=== PATIENT | female | born 1960 | race Caucasian/White ===

== ENCOUNTER 2025-05-14 13:58 | Outpatient (AMB) | payer MEDICARE, SELFPAY ==
--- NOTE | 2025-05-14 14:29 | A.PHYSOV ---
Vital Signs 05/14/25 14:37 Height 5 ft 2 in Weight 166 lb BMI 30.4 Intake Visit Reasons: NPV SMA REF- Lumbar radiculopathy Intake Note: Patient is a 65 year old female here today for a new patient visit. Patient has been referred for lumbar radiculopathy. Food Preparer Required: No Allergies amoxicillin (From Augmentin) Allergy (Unknown, Verified 05/14/25 14:32) Unknown clavulanic acid (From Augmentin) Allergy (Unknown, Verified 05/14/25 14:32) Unknown HPI Comments Details: History of Present Illness The patient is a 65-year-old female presenting with chronic discomfort and functional limitations primarily due to hip and knee pain. The patient has a history of lumbar spondylosis, with an MRI from August 2024 showing multiple levels of spondylosis and nerve root crowding. She experiences chronic back discomfort, especially when standing or walking for long periods, but denies current sciatica symptoms. The patient reports significant hip discomfort, identified as likely hip arthritis, with tightness and limited range of motion contributing to her limping and knee pain. She also experiences persistent right knee pain, exacerbated by movement and weight-bearing activities, and plans to obtain an x-ray for further evaluation. Previous interventions include physical therapy and career development coordinator/teacher, which were discontinued due to cost and lack of benefit, and a digital physical therapy program that may have worsened her knee discomfort. She has a pain level today at 7/10. I reviewed the referring provider's no prior to consultation. Pain Description - Onset: Chronic, with significant symptoms noted since 2019 - Quality: Described as discomfort rather than acute pain - Location: Primarily in the right knee and hip - Radiation: No radiating pain down the legs - Exacerbating factors: Movement, weight-bearing activities - Relieving factors: Ice application in the morning - Interference: Affects walking, standing, and carrying objects Results - MRI Lumbar Spine (August 2024): Multiple levels of lumbar spondylosis, crowding of bilateral L5 nerve roots at L4-5, disc abutment of right L2 nerve root at L1-2 [facility] Surgical History Hx of tonsillectomy (~1962) Social History (Updated 05/14/25 @ 14:36 by Gillian Peck MA) Alcohol intake: current Alcohol intake frequency: a few times a month Patient Tobacco Use Status: Never used Tobacco Current occupational status: retired Review of Systems Narrative Review of Systems - Musculoskeletal: Reports chronic discomfort in the right knee and hip; denies radiating pain down the legs - Neurological: Denies current sciatica symptoms - Gastrointestinal: Reports discomfort associated with irregular bowel movements Physical Exam Exam Exam: Physical Exam Lumbar Spine: Examination of her lumbar spine, there is no visible swelling or deformity. She is tender to lower lumbar facets. She is otherwise nontender. Full range of motion of lumbar spine. She does have an increase in pain with facet loading. Special Tests: Lhermittes sign was negative Heel Toe walk is normal Left straight leg raise: Negative Right straight leg raise: Negative Special tests Tiffany test is negative Ganslen's test is negative SI Joint compression test negative Dhara test negative Piriformis stretch is negative Lower Extremities: Marked limited range of motion of her right hip and external rotation as well as internal rotation. She is tender to the medial joint line of the right knee. There is no effusion. Ligaments are intact. Full range of motion. She does have pain with Bel testing medially. Range of motion exacerbates her pain. Otherwise full range of motion bilateral lower extremities. No calf pain or edema. Neuro: Sensation: Intact to lower extremities bilaterally Strength L2 (Psoas): 5/5 on the left and 5/5 on the right. L3 (Quads): 5/5 on the left and 5/5 on the right. L4 (Ant tibialis): 5/5 on the left and 5/5 on the right. L5 (EHL) 5/5 on the left and 5/5 on the right. S1 (Gastroc): 5/5 on the left and 5/5 on the right. DTR L4: (Patellar) Left 2 Right 2 S1: (Achilles) Left 2 Right 2 Babinski Downgoing No pathologic clonus. No involuntary movement. Vital Signs: BMI result Body Mass Index 30.4 Office Procedures AMB Knee Injection AMB Knee Injection Procedure Details: Right Knee injection: The risks, benefits and complications of the right knee injection were discussed with the patient including but not limited to increased serum glucose, infection, nerve pain, fat atrophy, pigment augmentation, bleeding and pain. All questions were answered to the patient's satisfaction. Verbal consent was obtained. The patient was eager to proceed. Using aseptic technique with Betadine, ethyl chloride was then used to desensitize the skin. Using a 22-gauge needle 40 mg of Kenalog and 3 mL 2% lidocaine were injected into the knee joint. A Band-Aid was applied. Patient tolerated the procedure well without immediate complication. Postinjection instructions were given. Knee Injection - : Right All charges added?: Procedure code (CPT) selection complete Office Meds Kenalog 40 mg/mL suspension for injection Performing Provider: AUGUSTO Castro [facility] Administered by: AUGUSTO Castro on 05/14/25 16:05 Dose Route Admin Location Dispensed Lot Number Expiration Date [facility] Team Lead 40 mg intra-articular 1 mL [id number] [employer] Total Dispensed Waste 1 mL 0 % lidocaine (PF) 20 mg/mL (2 %) injection solution Performing Provider: AUGUSTO Castro Performing Location: [facility] Administered by: AUGUSTO Castro on 05/14/25 16:05 Dose Route Admin Location Dispensed Lot Number Expiration Date [facility] Team Lead 60 mg intra-articular 3 mL [id number] Total Dispensed Waste 3 mL 0 % Assessment & Plan Assessment & Plan (1) Osteoarthritis of right hip: Code(s): M16.11 - Unilateral primary osteoarthritis, right hip Category: Medical Qualifiers: Osteoarthritis type: primary Qualified Code(s): M16.11 - Unilateral primary osteoarthritis, right hip (2) Osteoarthritis of right knee: Code(s): M17.11 - Unilateral primary osteoarthritis, right knee Category: Medical Qualifiers: Osteoarthritis type: primary Qualified Code(s): M17.11 - Unilateral primary osteoarthritis, right knee Plan Pain Management - Affect: Pain impacts functionality and quality of life - Analgesia: No specific pain medications discussed - Adverse Effects: None reported - Activities of Daily Living: Pain limits walking, standing, and carrying objects - Aberrant Drug Related Behaviors: None reported Plan Patient was informed and verbally consented to the use of an ambient scribe for clinic note documentation during this visit. 1. Lumbar Spondylosis The plan for lumbar spondylosis includes monitoring symptoms and considering further imaging if symptoms worsen. 2. Hip Arthritis The plan for hip arthritis involves obtaining an x-ray of the hip and ordering an injection for pain management. 3. Knee Pain The plan for knee pain includes obtaining an x-ray and administering a cortisone injection to assess its efficacy in pain relief. Discussion Notes During the discussion, I explained to the patient that her hip appears to be the primary source of her discomfort, potentially causing her knee pain as well. We discussed the option of obtaining x-rays for both the hip and knee to better understand the underlying issues. I offered a cortisone injection for her knee to provide temporary relief, explaining the potential risks and benefits, including the possibility of infection and nerve damage. We also discussed the plan to order a hip injection, which would be administered by Dr. Daniel, and the importance of follow-up to assess the effectiveness of these interventions. Patient Instructions - Schedule x-rays for your right hip and knee as soon as possible. - Consider receiving a cortisone injection for your knee today to help with pain relief. - Follow up with Dr. Daniel for a hip injection. - Monitor your symptoms and report any changes or worsening of your condition. Orders: Orders XR hip RT min 2V Today M16.10 - Unilateral primary osteoarthritis, unspecified hip XR knee RT 4V Today M25.569 - Pain in unspecified knee AMB Knee Injection Today M17.11 - Unilateral primary osteoarthritis, right knee Coding Level of Care Code Tele New Pt Level 4 (83614) Diagnoses Primary osteoarthritis of right hip M16.11 Osteoarthritis type: primary Primary osteoarthritis of right knee M17.11 Osteoarthritis type: primary CPT Codes AMB Knee Injection - Hip/Bursa Injection - : Right ([id number])
[2025-05-14 14:37] VITALS: BMI 30.4
--- OUTSIDE RECORDS SUMMARY | 2025-05-14 17:22 | XMS_ITS | Clinical Summary ---
Author Organization [facility] ity Address [address] [place] [address] Care Team Providers Care Rail Car Loader Name Role Phone Rupal Ball MD Primary Care Provider Allergies Active Allergy Reactions Criticality Noted Date Comments Amoxicillin-Pot Clavulanate Diarrhea,Pranav sea And Vomiting 07/15/2013 Medications clotrimazole-be tamethasone (LOTRISONE) 1-0.05 % cream APPLY SPARINGLY TO THE AFFECTED AREA(S) TWICE DAILY NEEDED 8 Active lisinopriL (PRINIVIL,ZESTR IL) 5 mg tablet TAKE 1 TABLET DAILY 2 Active simvastatin (ZOCOR) 10 mg tablet TAKE 1 TABLET DAILY (CALL TO SCHEDULE AN APPOINTMENT PRIOR TO FURTHER REFILLS) 2 Active Active Problems Problem Noted Date Diagnosed Date Glaucoma suspect 04/04/2021 Overview (08/01/2024): Dr Howard Herniation of intervertebral disc between L5 and S1 05/26/2020 Overview (08/01/2024): Rt paracentral disc, effaing S1 nerve root- Dr Rizzo- cauda equina Sciatica of right side 05/24/2020 Hypertension 02/05/2018 Hamstring injury 10/24/2017 Hyperlipidemia 01/30/2017 Rosacea 01/07/2013 Obesity 12/31/2012 Osteoarthrosis 12/29/2011 Immunizations Immunization Administration Dates Next Due Influenza trivalent, with pr eservative (Fluzone; Afluria) 6mo and older 03/11/2021,03/09/2020 Tdap Tetanus diptheria acell ular pertussis (Boostrix; Adacel) 7yo and older 04/17/2012 Zoster recombinant (Shingrix) 19yo and older 12/2020,12/02/2020 Surgical History Surgery Date Site/Laterality Comments EYE SURGERY PROCEDURE: HISTORICAL EYE SURGERY TONSILLECTOMY PROCEDURE: HISTORICAL TONSILLECTOMY Medical History Medical History Date Comments Hyperlipidemia 01/30/2017 DX:Hyperlipidemi a Hamstring injury 10/24/2017 DX:Hamstring in jury Hypertension 02/05/2018 DX:Hypertension Osteoarthrosis 12/29/2011 DX:Osteoarthrosi s Rosacea 01/07/2013 DX:Rosacea Obesity 12/31/2012 DX:Obesity Family History Medical History Relation Name Comments Pancreatic cancer Father CHF, HTN Prostate cancer Maternal Grandfather Coronary artery disease Mother Coronary artery disease Paternal Grandfather Other: complication of child brith Paternal Grandmothe r Relation Name Status Comments Father Maternal Grandfather Maternal Grandmother Mother Paternal Grandfather Paternal Grandmother Social History Tobacco Use Types Packs/Day Years Used Date Smoking Tobacco: Never Smokeless Tobacco: Never Alcohol Use Standard Drinks/Week Comments Yes 0 (1 standard drink = 0.6 oz pur e alcohol) Comments Unknown Sex and Gender Information Value Date Recorded Sex Assigned at Not on file Legal Sex Female 7:57 AM EST Gender Identity Not on file Sexual Orientation Not on file Obstetrics History Plan of Treatment Health Maintenance Due Date Last Done Comments Colorectal Cancer Screening: Colonoscopy 1960 Pneumococcal Vaccine: 50+ Years (1 of 1 - PCV) 2008 Cervical Cancer Screening: HPV 08/01/2021 08/01/2016 DTaP,Tdap,and Td Vaccines (2 - Td or Tdap) 04/17/2022 04/17/2012 Osteoporosis Screening (Bone Density Screening) 06/04/2022 Social Influencers of Health Screening 06/04/2022 Hypertension/CHF/CAD Annual BMP Blood Test 06/16/2022 04/04/2021 Breast Cancer Screening 01/17/2023 01/17/2021 Falls Risk Assessment 2023 Depression Screening 07/02/2024 COVID-19 Vaccine (2 - 2024-2 6 season) 2025 10/04/2020 Influenza Vaccine (#1) 2025 , 03/09/2020 Cholesterol Screening (Lipid Panel) 11/18/2025 11/18/2020, 11/18/2020 RSV Immunization Adult Patients (1 - 1-dose 75+ series) 2033 Hepatitis C Screening Completed 11/18/2020 Zoster Vaccines Completed 02/05/2021, 12/02/2020 HIB Vaccines Aged Out No longer eligi ble based on patient's age to complete this topic HPV Vaccines Aged Out No longer eligi ble based on patient's age to complete this topic Hepatitis A Vaccines Aged Out No long er eligible based on patient's age to complete this topic Hepatitis B Vaccines Aged Out No long er eligible based on patient's age to complete this topic IPV Vaccines Aged Out No longer eligi ble based on patient's age to complete this topic MMR Vaccines Aged Out No longer eligi ble based on patient's age to complete this topic Meningococcal ACWY Vaccine Aged Out N o longer eligible based on patient's age to complete this topic Meningococcal B Vaccine Aged Out No l onger eligible based on patient's age to complete this topic RSV Immunization Patients Under 20 months Aged Out No longer eligible b ased on patient's age to complete this topic Varicella Vaccines Aged Out No longer eligible based on patient's age to complete this topic Procedures Procedure Name Priority Date/Time Associated Diagnosis Comments ANNUAL BMP BLOOD TEST Routine 04/04/2021 SCREENING MAMMOGRAPHY BI 2-VIEW BREAST INC CAD Routine 01/17/2021 1:58 PM EDT Encounter for screening mammogram for malignant neoplasm of breast HEPATITIS C SCREENING Routine 11/18/2020 LIPID PANEL Routine 11/18/2020 HPV Routine 08/01/2016 from Last 3 Months or Most Recently Relevant to Health Maintenance Results * Annual BMP Blood Test (04/04/2021) Annual BMP Blood Test abstracted Historical Provider HEALTH MAINTENANCE Final Result * SCREENING MAMMOGRAPHY BI 2-VIEW BREAST INC CAD (01/17/2021 1:58 PM EDT) Anatomical Region Laterality Modality Radiographic Glory ging 12/01/2020 9:36 AM EDT Narrative 01/18/2021 10:10 AM EDT This is a summary report. The complete report is available in the patient's medical record. If you cannot access the medical record, please contact the sending organization for a detailed fax or copy. Full field digital screening mammography, reviewed with CAD and compared to previous. Both 2D and tomosynthesis techniques were used. The breasts are composed of fatty and fibroglandular tissue. No suspicious mass, architectural distortion or suspicious calcifications are identified. IMPRESSION: : No mammographic evidence of malignancy. BIRADS 1-Negative; N. 5 year breast cancer risk assessment 1.7 % Lifetime breast cancer risk assessment 7.7 % Breast cancer risk category Low (<15%) Procedure Note Amor Durán MD - 06/20/2022 This is a summary report. The complete report is available in thepatient's medical record. If you cannot access the medical record, pleasecontact the sending organization for a detailed fax or copy. Full field digital screening mammography, reviewed with CAD and comparedto previous. Both 2D and tomosynthesis techniques were used. The breastsare composed of fatty and fibroglandular tissue. No suspicious mass,architectural distortion or suspicious calcifications are identified. IMPRESSION: : No mammographic evidence of malignancy. BIRADS 1-Negative; N. 5 year breast cancer risk assessment 1.7 % Lifetime breast cancer risk assessment 7.7 % Breast cancer risk category Low (<15%) Jah Carmona MD IMG XR PROCEDURES Final Result * Hepatitis C Screening (11/18/2020) Pathologist [facility] Hepatitis C Screening abstracted Historical Provider HEALTH MAINTENANCE Final Result * Lipid panel (11/18/2020) LDL/HDL Ratio 2 0 - 4 Triglycerides 92 0 - 150 mg/dL Cholesterol 189 0 - 200 mg/dL LDL Cholesterol 84 0 - 100 mg/dL Blood Venous blood specimen / Unknown Historical Provider LAB BLOOD ORDERABLES Svetlana l Result * Cervical Cancer Screening: HPV (08/01/2016) Cervical Cancer Screening: HPV no interpretation , abstracted Historical Provider HEALTH MAINTENANCE Final Result from Last 3 Months or Most Recently Relevant to Health Maintenance Care Teams Rail Car Loader Relationship Specialty Start Date End Date Rupal Ball MD [address] [place] [id number] PCP - General Internal Medicine 09/09/21
--- OUTSIDE RECORDS SUMMARY | 2025-05-14 17:22 | XMS_ITS | Clinical Summary ---
Author Organization [facility] Address [address] [place] [address] Care Team Providers Care Printing Supplies Sales Representative Name Role Phone Jah Carmona Primary Care Provider Elisa vailable Social History Tobacco Use Types Packs/Day Years Used Date Smoking Tobacco: Never Assessed Sex and Gender Information Value Date Recorded Sex Assigned at Not on file Gender Identity Not on file Sexual Orientation Not on file Plan of Treatment Health Maintenance Due Date Last Done Comments Hepatitis C Screening 1960 COVID-19 Vaccine (#1) 1958 Depression Screening 1970 Preventative Health Evaluation 1976 Colon Cancer Screening (Colonoscopy) 2003 Breast Cancer Screening (Mammogram) 2008 Shingrix-Zoster Vaccine (1 of 2) 2008 DTap / Tdap / Td (2 - Td or Tdap) 04/17/2022 012 Fall Risk Assessment 2023 Osteoporosis Screening (DEXA Scan) 2023 Pneumococcal Vaccine (1 of 1 - PCV) 2023 Influenza Vaccine (#1) 2025 RSV Adult > 60+ Yrs or Pregn ant (1 - 1-dose 75+ series) 2033 Hepatitis B Vaccines Aged Out No long er eligible based on patient's age to complete this topic RSV Ped < 20 months Aged Out No longe r eligible based on patient's age to complete this topic Care Teams Printing Supplies Sales Representative Relationship Specialty Start Date End Date Jah Carmona PCP - General Internal Medicine 06/02/20
== END 2025-05-14 15:17 | disposition home or self-care (01) ==
LOC: HO.HPHYS 13:59
PROVIDERS: PCP Internal Medicine; Visit Provider Physician Assistant
DX: M16.11 Unilateral primary osteoarthritis, right hip (principal); M17.11 Unilateral primary osteoarthritis, right knee
CPT/HCPCS: 20610; 99204

== ENCOUNTER → 2025-05-14 13:58 | Outpatient (BNVA) | payer MEDICARE, SELFPAY | PROVIDERS: PCP Internal Medicine; Visit Provider Physician Assistant | DX: M17.11 Unilateral primary osteoarthritis, right knee (principal); M16.11 Unilateral primary osteoarthritis, right hip; M47.816 Spondylosis without myelopathy or radiculopathy, lumbar region | CPT/HCPCS: 20610; 99202; J2003; J3301 ==

== ENCOUNTER 2025-06-12 12:10 | Outpatient (REF) | payer MEDICARE, SELFPAY | END 2025-06-12 12:11 | disposition home or self-care (01) | LOC: HO.HPHYSR 12:10 | PROVIDERS: PCP Internal Medicine; Visit Provider Physical Medicine & Rehabilitation | DX: M16.11 Unilateral primary osteoarthritis, right hip (principal) | CPT/HCPCS: 20610; 77002; J2003; J3301; Q9967 ==

== ENCOUNTER 2025-06-12 12:10 | Outpatient (AMB) | payer MEDICARE, SELFPAY ==
--- NOTE | 2025-06-12 12:18 | A.PHYSOV ---
Vital Signs 06/12/25 12:22 Height 5 ft 2 in Weight 167 lb BMI 30.5 Pulse 99 Intake Visit Reasons: Right Hip Injection Intake Note: Patient is a 65 year old female in office today for a Right Hip injection Floor Inspector Required: No Allergies amoxicillin (From Augmentin) Allergy (Unknown, Verified 06/12/25 12:18) Unknown clavulanic acid (From Augmentin) Allergy (Unknown, Verified 06/12/25 12:18) Unknown PFS Surgical History (Updated 06/12/25 @ 12:20 by Janelle Correa [place]) History of eye surgery Hx of tonsillectomy (~1961) Social History (Updated 06/12/25 @ 12:21 by Janelle Correa [place]) Household Members: None Alcohol intake: current Alcohol intake frequency: does not drink Patient Tobacco Use Status: Never used Tobacco Use of substances other than those prescribed or required for medical reasons: No service: No Current occupational status: retired Physical Exam Vital Signs: Last Vital Signs Pulse 99 06/12/25 12:22 BMI result Body Mass Index 30.5 Office Procedures AMB Hip Injection AMB Hip Injection Procedure Details: Procedure performed: Right hip injection under fluoroscopic guidance Preop diagnosis: Hip DJD Postop diagnosis: The same Patient was brought into the procedure room and placed in the supine position in the procedure table. Right hip joint was visualized utilizing fluoroscopy. Skin over joint was prepped with Betadine solution and draped. 3.5 in 22 gauge spinal needle was introduced percutaneously and advanced into the joint. Needle placement was verified utilizing 3 cc of Omnipaque contrast solution. Total volume of 5 cc containing 40 mg of triamcinolone and 2% lidocaine was injected after negative aspiration for blood and without resistance. Radiation exposure was recorded and documented in the chart. Hip intraarticular Injection - - use with FL Gd order: Right All charges added?: Procedure code (CPT) selection complete Office Meds Kenalog 40 mg/mL suspension for injection Performing Provider: Shaji Guardado DO Performing Location: [facility] Administered by: Shaji Guardado DO on 06/12/25 13:03 Dose Route Admin Location Dispensed Lot Number Expiration Date [facility] Manager [employer] 40 mg intrabursal 1 mL [id number] [employer] Total Dispensed Waste 1 mL 0 % lidocaine (PF) 20 mg/mL (2 %) injection solution Performing Provider: Shaji Guardado DO Performing Location: [facility] Administered by: Shaji Guardado DO on 06/12/25 13:03 Dose Route Admin Location Dispensed Lot Number Expiration Date [facility] Manager [employer] 40 mg intrabursal 5 mL [id number] [employer] Total Dispensed Waste 5 mL 60 % Omnipaque 300 300 mg iodine/mL intravenous solution Performing Provider: Shaji Guardado DO Performing Location: [facility] Administered by: Shaji Guardado DO on 06/12/25 13:03 Dose Route Admin Location Dispensed Lot Number Expiration Date [facility] Manager [employer] 3 mL intra-articular 10 mL [id number] [employer] Total Dispensed Waste 10 mL 70 % Assessment & Plan Assessment & Plan (1) Osteoarthritis of right hip: Code(s): M16.11 - Unilateral primary osteoarthritis, right hip Category: Medical Qualifiers: Osteoarthritis type: primary Qualified Code(s): M16.11 - Unilateral primary osteoarthritis, right hip Plan: Procedure Plan Procedure Orders: Orders FL Guided Asp Inj Major Jt RT Today M16.11 - Unilateral primary osteoarthritis, right hip AMB Hip/Bursa Injection Today M16.11 - Unilateral primary osteoarthritis, right hip Coding Level of Care Code Procedure Only Diagnoses Primary osteoarthritis of right hip M16.11 Osteoarthritis type: primary CPT Codes AMB Hip Injection - Hip intraarticular Injection - : Right ([id number])
[2025-06-12 12:22] VITALS: PULSE 99; BMI 30.5
--- NOTE | 2025-06-12 12:22 | A.PHYSOV_ITS ---
Vital Signs 06/12/25 12:22 Height 5 ft 2 in Weight 167 lb BMI 30.5 Pulse 99 Intake Visit Reasons: Right Hip Injection Intake Note: Patient is a 65 year old female in office today for a Right Hip injection Speech And Language Specialist Required: No Allergies amoxicillin (From Augmentin) Allergy (Unknown, Verified 06/12/25 12:18) Unknown clavulanic acid (From Augmentin) Allergy (Unknown, Verified 06/12/25 12:18) Unknown [facility] Surgical History (Updated 06/12/25 @ 12:20 by Janelle Correa MA) History of eye surgery Hx of tonsillectomy (~1961) Social History (Updated 06/12/25 @ 12:21 by Janelle Correa MA) Household Members: None Alcohol intake: current Alcohol intake frequency: does not drink Patient Tobacco Use Status: Never used Tobacco service: No Current occupational status: retired Coding
--- NOTE | 2025-06-12 12:41 | A.OFFVIS_ITS ---
<Statement entered by Gillian Peck MA - 06/12/25 13:01> opened in error
--- OUTSIDE RECORDS SUMMARY | 2025-06-12 17:28 | XMS_ITS | Clinical Summary ---
Author Organization [facility] Prior to 11/29/24 Address [address] [place] [address] Care Team Providers Care Blasting Gang Miner Name Role Phone Jah Carmona Primary Care [...] age to complete this topic Care Teams Blasting Gang Miner Relationship Specialty Start Date End Date Jah Carmona PCP - General Internal Medicine 06/02/20
--- OUTSIDE RECORDS SUMMARY | 2025-06-12 17:28 | XMS_ITS | Clinical Summary ---
Author Organization [facility] ity Address [address] [place] [address] Care Team Providers Care Substation Design Draftsperson Name Role Phone Rupal Ball MD Primary [...] Assessment 2023 Depression Screening 07/02/2024 COVID-19 Vaccine ( - 2024-2 6 season) 2025 10/04/2020 Influenza [...] Result * Hepatitis C Screening (11/18/2020) Pathologist [facility] Hepatitis C Screening abstracted Historical Provider HEALTH [...] Recently Relevant to Health Maintenance Care Teams Substation Design Draftsperson Relationship Specialty Start Date End Date Rupal Ball MD [address] [id number] PCP - General Internal Medicine 09/09/21
--- OUTSIDE RECORDS SUMMARY | 2025-06-12 17:28 | XMS_ITS ---
[facility] Name [facility] Care Team Organization Name Specialty Phone Email Start Date End Da te [facility] Priti Lara Primary Care 05/09/2022 02/18/2024
== END 2025-06-12 13:14 | disposition home or self-care (01) ==
LOC: HO.HPHYS 12:11
PROVIDERS: PCP Internal Medicine; Visit Provider Physical Medicine & Rehabilitation
DX: M16.11 Unilateral primary osteoarthritis, right hip (principal)
CPT/HCPCS: 20610; 77002

== ENCOUNTER 2025-06-30 10:21 | Outpatient (AMB) | payer MEDICARE, SELFPAY ==
[2025-06-30 10:32] VITALS: BMI 30.5
--- NOTE | 2025-06-30 10:32 | A.PHYSOV_ITS ---
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 Patient underwent intra- articular injection of her right hip on 06/12/2025. She reports the hip injection provided a significant, 70% reduction in pain, which is more effective than a previous knee injection that only lasted for a couple of weeks. She has not needed to take Advil since the hip injection. The patient experiences shooting pain if she bends over too quickly, but moving more deliberately helps. Lifting, such as carrying groceries, is a known trigger. She continues to limp if she overexerts herself or sits for too long, such as after a long drive. She notes that upgrading her shoes has improved her balance. Her knee still bothers her occasionally, and both the knee and hip were bothersome immediately after the injections. Past medical history is notable for sciatica years ago, which has not been a recent issue. Radiographic imaging of her hip showed arthritis, while her knee x-ray was unremarkable. Pain Description - Location: Primarily hip, with some pain radiating to the knee. - Quality: Reports a shooting pain with fast movements. - Severity: Reports a 70% improvement in pain since the recent hip injection. - Exacerbating factors: Lifting, bending over fast, overexertion, and prolonged sitting. - Relieving factors: Moving more deliberately and slowly, and the recent hip injection. - Interference with function: Previously unable to walk her dogs around the block, but can now do so. 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 Results - Imaging: - Hip X-ray showed arthritis. - Knee X-ray was noted to be good. [facility] Surgical History History of eye surgery Hx of tonsillectomy (~1962) Social History Household Members: None Alcohol intake: current Alcohol intake frequency: does not drink Patient Tobacco Use Status: Never used Tobacco service: No Current occupational status: retired Review of Systems Narrative Review of Systems - Musculoskeletal: Reports occasional knee pain and a limp with overuse or prolonged sitting. - Reports hip pain which has improved since her recent injection. - Neurological: Reports a history of sciatica. Physical Exam Exam Exam: Physical Exam Exam Physical Exam Lumbar Spine: Examination of her lumbar spine, there is no visible swelling or deformity. She is tender to lower lumbar facets. She is otherwise nontender. Full range of motion of lumbar spine. She does have an increase in pain with facet loading. Special Tests: Lhermittes sign was negative Heel Toe walk is normal Left straight leg raise: Negative Right straight leg raise: Negative Special tests Tiffany test is negative Ganslen's test is negative SI Joint compression test negative Dhara test negative Piriformis stretch is negative Lower Extremities: Mildly improved range of motion of her right hip and external rotation as well as internal rotation. She is tender to the medial joint line of the right knee. There is no effusion. Ligaments are intact. Full range of motion. She does have pain with Bel testing medially. Range of motion exacerbates her pain. Otherwise full range of motion bilateral lower extremities. No calf pain or edema. Neuro: Sensation: Intact to lower extremities bilaterally Strength L2 (Psoas): 5/5 on the left and 5/5 on the right. L3 (Quads): 5/5 on the left and 5/5 on the right. L4 (Ant tibialis): 5/5 on the left and 5/5 on the right. L5 (EHL) 5/5 on the left and 5/5 on the right. S1 (Gastroc): 5/5 on the left and 5/5 on the right. DTR L4: (Patellar) Left 2 Right 2 S1: (Achilles) Left 2 Right 2 Babinski Downgoing No pathologic clonus. No involuntary movement. Vital Signs: BMI result Body Mass Index 30.5 Assessment & Plan Assessment & Plan (1) Osteoarthritis of right hip: Code(s): M16.11 - Unilateral primary osteoarthritis, right hip Category: Medical Qualifiers: Osteoarthritis type: primary Qualified Code(s): M16.11 - Unilateral primary osteoarthritis, right hip (2) Osteoarthritis of right knee: Code(s): M17.11 - Unilateral primary osteoarthritis, right knee Category: Medical Qualifiers: Osteoarthritis type: primary Qualified Code(s): M17.11 - Unilateral primary osteoarthritis, right knee Plan Pain Management - Affect: The patient is pretty pleased with her pain reduction. - Analgesia: She reports a 70% reduction in pain with the hip injection and has not used Advil since receiving it. - Activities of Daily Living: The pain had previously prevented her from walking her dogs, an activity she can now perform. - Lifting groceries and bending over quickly can trigger pain. Plan Patient was informed and verbally consented to the use of an ambient scribe for clinic note documentation during this visit. 1. Arthritis Of The Hip The patient's hip arthritis is the primary pain generator, with the recent injection providing 70% relief. She is a candidate for a hip replacement but is not required to undergo surgery at this time. The plan is to continue with hip injections every 3-4 months as needed, which can buy her time. The decision for surgery will be guided by the duration of injection efficacy and her overall health rather than her chronological age. It was recommended she consider physical therapy to strengthen the muscles around her hip, especially in preparation for an eventual hip replacement. She is encouraged to engage in low-impact activities like walking, biking, and swimming. When she is ready for hip replacement, she will be referred to an orthopedic surgeon. 2. Knee Pain The patient's occasional knee pain is considered a secondary issue, and may be referred pain from her hip. Although her knee x-ray was unremarkable, this does not rule out a meniscus issue. The plan is to monitor her symptoms. If the knee pain persists or worsens, options include physical therapy or obtaining a new MRI. Discussion Notes I discussed with the patient that her recent hip injection has been successful, providing significant pain relief, and confirmed that her hip arthritis is likely the primary source of her symptoms, with possible radiation to the knee. We reviewed the option of repeating these injections every 3-4 months to manage her pain and delay the need for surgery. I explained that while she qualifies for a hip replacement, waiting is a reasonable strategy, and the timing of surgery depends more on her overall health and the diminishing effectiveness of injections, rather than her specific age. I recommended she consider physical therapy to strengthen her hip muscles, explaining that being stronger before surgery leads to better outcomes. I encouraged low-impact activities such as walking, biking, and swimming. I instructed her to call the office to schedule another injection when her pain returns and begins to affect her quality of life. Patient Instructions - Continue with gentle, low-impact activities like walking, biking, or swimming. - When your hip pain returns and starts to impact your daily activities, please call our office to schedule another injection. - You can get these shots every 3 to 4 months if they continue to help. - It is reasonable to delay hip replacement surgery as long as the injections are managing your pain and you maintain good overall health. - Consider starting physical therapy to strengthen the muscles around your hip, as this will help if you do have surgery in the future. - If your knee pain becomes a bigger problem, let us know, as we may need to get a new MRI. Coding Level of Care Code Est Pt Level 3 (57250) Diagnoses Primary osteoarthritis of right hip M16.11 Osteoarthritis type: primary Primary osteoarthritis of right knee M17.11 Osteoarthritis type: primary
--- OUTSIDE RECORDS SUMMARY | 2025-06-30 13:51 | XMS_ITS | Clinical Summary ---
Author Organization [facility] Prior to 11/29/24 Address [address] [place] [address] Care Team Providers Care Loss Prevention And Safety Manager Name Role Phone Jah Carmona Primary Care [...] age to complete this topic Care Teams Loss Prevention And Safety Manager Relationship Specialty Start Date End Date Jah Carmona PCP - General Internal Medicine 06/02/20
--- OUTSIDE RECORDS SUMMARY | 2025-06-30 13:51 | XMS_ITS | Clinical Summary ---
Author Organization [facility] ity Address [address] [place] [address] Care Team Providers Care Hydraulic Lift Driver Name Role Phone Rupal Ball MD Primary [...] Result * Hepatitis C Screening (11/18/2020) Pathologist [facility] Hepatitis C Screening abstracted Historical Provider HEALTH [...] Recently Relevant to Health Maintenance Care Teams Hydraulic Lift Driver Relationship Specialty Start Date End Date Rupal Ball MD [address] [id number] PCP - General Internal Medicine 09/09/21
== END 2025-06-30 11:07 | disposition home or self-care (01) ==
LOC: HO.HPHYS 10:22
PROVIDERS: PCP Internal Medicine; Visit Provider Physician Assistant
DX: M16.11 Unilateral primary osteoarthritis, right hip (principal); M17.11 Unilateral primary osteoarthritis, right knee
CPT/HCPCS: 99213

== ENCOUNTER → 2025-06-30 10:21 | Outpatient (BNVA) | payer MEDICARE, SELFPAY | PROVIDERS: PCP Internal Medicine; Visit Provider Physician Assistant | DX: M16.11 Unilateral primary osteoarthritis, right hip (principal); M17.11 Unilateral primary osteoarthritis, right knee; R20.0 Anesthesia of skin | CPT/HCPCS: 99212 ==